=== PATIENT | female | born 1955 | race Two or more races ===

== ENCOUNTER 2024-03-29 12:02 | Emergency (ER) | payer MEDICARE, OTHER ==
[~2024-03-29] VITALS: Ht 152.4 cm; Wt 60.9 kg
[2024-03-29 13:10] VITALS: BP 123/63; RESP 18; TEMP 98.6; O2SAT 96
[2024-03-29 13:11] VITALS: PULSE 57
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
[2024-03-29] MEDS: ACETAMINOPHEN 500 MG TAB or CAP PO ONE (13:13)
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
[2024-03-29] MEDS ORDERED: ACET-1080 PO (13:47)
--- NOTE | 2024-03-29 19:02 | ECG ---
[facility] Test Date: 2024-03-29 Test Time: 12:09:55 Pat Name: MILES MAYA Department: ER Room: Gender: F Er Tech: NIKITA : 1955 Requested By: GLORIA GARCIA Order Number: [id number] Reading MD: Measurements Intervals [place] Rate: 57 P: 48 ND: 168 QRS: 69 QRSD: 84 T: 38 QT: 412 QTc: 401 Interpretive Statements Sinus rhythm Low voltage, precordial leads Minimal ST elevation, inferior leads Please click the below link to view image of tracing.
== END 2024-03-29 13:56 | disposition home or self-care (01) ==
LOC: ER 12:02 → EDBD 12:02 → ER 13:56
DX: S29.011A Strain of muscle and tendon of front wall of thorax, initial encounter (principal); S00.03XA Contusion of scalp, initial encounter; I10 Essential (primary) hypertension; R94.31 Abnormal electrocardiogram [ECG] [EKG]; Z88.1 Allergy status to other antibiotic agents; Z88.2 Allergy status to sulfonamides; V49.9XXA Car occupant (driver) (passenger) injured in unspecified traffic accident, initial encounter; Y93.89 Activity, other specified; Y92.89 Other specified places as the place of occurrence of the external cause; Y99.8 Other external cause status
CPT/HCPCS: 70450; 71046; 93005